=== PATIENT | female | born 1960 | race Caucasian/White ===

== ENCOUNTER 2020-04-22 04:51 | Day surgery (SDC) | payer BC ==
[2020-04-20 16:12] VITALS: BMI 28.5
[2020-04-22] MEDS ORDERED: ceFAZolin SODIUM 1 GM VIAL ONE (09:02)
[2020-04-22] MEDS ORDERED: PROPOFOL 20 ML ONE ×2 (09:02)
[2020-04-22] MEDS ORDERED: DEXAMETHASONE SOD PHOSPHATE 4 MG/1 ML VIAL ONE (09:02)
[2020-04-22] MEDS ORDERED: SUCCINYLCHOLINE CHLORIDE 200 MG/10 ML SYRINGE ONE (09:02)
[2020-04-22] MEDS ORDERED: LIDOCAINE HCL/PF 2% SDV 5ML VIAL ONE (09:02)
[2020-04-22] MEDS ORDERED: MIDAZOLAM HCL 2 MG/2 ML SINGLE DOSE VIAL ONE ×2 (09:02→11:09)
[2020-04-22] MEDS ORDERED: SCOPOLAMINE HYDROBROMIDE 1 PATCH PATCH.TD72 ONE (09:54)
[2020-04-22] MEDS ORDERED: LIDOCAINE HCL 1% EPINEPHRINE 1:200,000 30 ML VIAL (PF) ONE (10:19)
[2020-04-22] MEDS ORDERED: oxyCODONE HCL 5 MG TABLET PO PRN ×2 (10:25)
[2020-04-22] MEDS ORDERED: ONDANSETRON 4 MG/2 ML VIAL IVPUSH PRN (10:25)
[2020-04-22] MEDS ORDERED: LACTATED RINGERS SOLUTION 1,000 ML IV SCH (10:30)
[2020-04-22] MEDS ORDERED: ceFAZolin 2 GRAM PREMIX BAG IVPB ONE (10:45)
[2020-04-22] MEDS ORDERED: BUPIVACAINE HCL/PF 0.5% (5 MG/ML) 30 ML VIAL IJ ONE (11:04)
[2020-04-22] MEDS ORDERED: THROMBIN (BOVINE) 5,000 UNIT VIAL TP ONE (11:04)
[2020-04-22] MEDS ORDERED: LIDOCAINE 1%/EPI 1:100000 (20 ML MULTI DOSE VIAL) IJ ONE (11:04)
[2020-04-22] MEDS ORDERED: ACETAMINOPHEN 1000 MG/100 ML VIAL (NON FORMULARY) IVPB ONE (12:35)
[2020-04-22] MEDS ORDERED: ONDANSETRON 4 MG/2 ML VIAL ONE (12:57)
--- NOTE | 2020-04-22 13:04 | OP ---
Operative Note - Note: Operative Date: 04/22/20 Pre-Operative Diagnosis: Thyroid cancer Operation: Total thyroidectomy Post-Operative Diagnosis: Same as Pre-op Surgeon: Bhupendra Stark Semiconductor Assembler: Bryant Nuñez Anesthesiologist/SOUND EFFECTS TECHNICIAN: Magalie Ontiveros Anesthesia: General Estimated Blood Loss (mls): 5 Operative Report Dictated: Yes
--- NOTE | 2020-04-22 14:17 | SURG ---
[employer]gery [employer] Project Engineer Note International Project Engineer: Bryant Nuñez PA-C Date of Service: 04/22/20 Diagnosis: Thyroid cancer Procedure: Total thyroidectomy I was present for the entirety of the operative procedure. For further detail, please refer to operative report.
[2020-04-22] MEDS ORDERED: ACETAMINOPHEN 650 MG/20.3 ML ORAL SOLUTION (CUPS) ONE (15:34)
[2020-04-22] MEDS ORDERED: ACETAMINOPHEN 650 MG/20.3 ML ORAL SOLUTION (CUPS) PO ONE (15:42)
[2020-04-22 16:57] VITALS: BP 108/66; PULSE 68; TEMP 98.6
--- NOTE | 2020-04-24 13:01 | OP ---
DATE OF OPERATION: 04/22/2020 SURGICAL ATTENDING: Galen Lofton MD IT SOFTWARE ENGINEER: STIVEN Ma PREOPERATIVE DIAGNOSIS: Thyroid cancer. POSTOPERATIVE DIAGNOSIS: Thyroid cancer. ANESTHESIA: General endotracheal. PROCEDURE: 1. Completion thyroidectomy. 2. Parathyroid reimplantation. 3. Neck ultrasound. 4. Revision of cervical scar. DESCRIPTION OF PROCEDURE: Patient was taken into the operating room, placed in a supine position, endotracheally intubated. Neck ultrasound was performed showing a normal right thyroid lobe with no other findings in the neck. The neck was then prepped and draped in the usual sterile fashion. The previously made cervical scar was excised and sent to Pathology. The incision was then carried down through subcutaneous tissues and platysma. Subplatysmal flaps were raised superiorly and inferiorly and flap hooks were placed for exposure. The median raphe was incised and the right-sided strap muscles were elevated off the thyroid gland. The recurrent laryngeal nerve was identified, dissected and preserved. The superior, posterior and inferior attachments of the right thyroid lobe were transected. The right thyroid lobe was then lifted off of the trachea and removed. It was checked for parathyroid tissue and a small piece of parathyroid tissue was identified. A biopsy was taken and on frozen section favored parathyroid tissue. The right superior parathyroid gland was saved intact with a good blood supply and color. The right inferior parathyroid gland was saved intact. However, its color was poor. Therefore, it was removed, biopsied, then proven to be parathyroid tissue and saved for reimplantation. Both parathyroid pieces were then placed into 2 separate pockets in the right sternocleidomastoid muscle marked by Prolene suture. Hemostasis was achieved. Valsalva was performed with no bleeding seen. The wound was then closed in 3 layers. Dermabond was placed. The patient was then awakened, extubated and taken to recovery in stable condition. Dr. Lofton, the attending surgeon, was present throughout the entire procedure. GALEN LOFTON M.D. [id number]
--- NOTE | 2020-04-28 16:25 | PATH ---
Surgical Pathology Report Patient Name: LAUREN CANSECO [facility]. Rec. #: [id number] /Age/Gender: 1960 (Age: 60) / F Account: [id number] Location: [facility] Taken: 04/22/2020 Received: 04/22/2020 Reported: 04/28/2020 Physicians: Bhupendra Stark M.D. Specimen(s) Received A: PARATHYROID, RIGHT, BIOPSY(FS) B: PARATHYROID #2, RIGHT, BIOPSY(FS) C: CERVICAL SCAR D: THYROID LOBE Clinical History Thyroid cancer Intraoperative Consult Diagnosis A. Right parathyroid, frozen section: Minute fragment of markedly crushed tissue; favor parathyroid tissue. B. Right parathyroid biopsy #2, frozen section: Parathyroid tissue. Deidre Ellis M.D., 04/22/2020 Final Diagnosis A. PARATHYROID, RIGHT, BIOPSY (FS): MINUTE FRAGMENT OF MARKEDLY CRUSHED LYMPHOID TISSUE. SEE COMMENT. B. PARATHYROID #2, RIGHT, BIOPSY (FS): SMALL FRAGMENT OF PARATHYROID TISSUE. C. CERVICAL SCAR, EXCISION: SKIN AND UNDERLYING SUBCUTANEOUS TISSUE WITH DERMAL SCAR. D. THYROID LOBE, LOBECTOMY: BENIGN THYROID WITH DIFFUSE HETEROGENOUS LYMPHOID INFILTRATE AND PROMINENT GERMINAL CENTERS CONSISTENT WITH CHRONIC LYMPHOCYTIC THYROIDITIS. ONE PARATHYROID GLAND. ONE LYMPH NODE NEGATIVE FOR CARCINOMA (0/1). SEE COMMENT. Comment: Part A, Immunohistochemical stains performed and interpreted at [facility] show scant crushed lymphoid tissue is positive for CD45. AE1/3, TTF-1, and chromogranin are negative. Although parathyroid tissue was favored on frozen section, no parathyroid tissue was identified on permanent sections. Submitted tissue was minute, show marked cautery and frozen artifact, and precludes definitive evaluation on frozen section analysis. History of thyroid cancer and Adelita's disease noted. Suggest clinical and radiological. Positive and negative controls (internal if applicable) show appropriate results. Electronically Signed Aggie Richard M.D. Gross Description A. Received fresh labeled "right parathyroid biopsy," is a less than 0.1 cm in greatest dimension syed soft tissue fragment. The specimen is submitted in toto for frozen section. The frozen section residue is entirely submitted in one cassette. B. Received fresh labeled "right parathyroid #2 biopsy," is a 0.1 cm in greatest dimension syed-red soft tissue fragment. The specimen is submitted in toto for frozen section. The frozen section residue is entirely submitted in one cassette. C. Received in formalin labeled "cervical scar," is a 5.4 x 0.5 cm syed, elliptical, unoriented portion of skin excised to depth of 0.7 cm. The epidermal surface displays a central, linear, well-healed scar. Die Cast Technician sections are submitted in one cassette. D. Received in formalin labeled "right thyroid lobe," are 3 syed brown, irregular, unoriented portions of soft tissue ranging from 0.8 x 0.6 x 0.6 cm to 3.0 x 2.2 x 1.0 cm. The specimen is 5 g in aggregate. The largest portion of tissue is consistent with a portion of thyroid lobe. The outer surface is syed avila and focally cauterized. The specimens are inked blue and serially sectioned. Sectioning of the largest portion displays syed-brown thyroid parenchyma. No definitive lesions are identified. The specimen is entirely submitted in 6 cassettes as follows: 1-smallest portion of tissue; 2-medium portion of tissue; 3-5-[id number] submitted largest portion of tissue. 04/22/2020 saudi04/22/2020
== END 2020-04-22 16:15 | disposition home or self-care (01) ==
LOC: JASU-SURG 04:51
PROVIDERS: ATTEND Surgery
PROC: 0GSR0ZZ Reposition Parathyroid Gland, Open Approach (ICD-10-PCS; 2020-04-22)
PROC: 0GTK0ZZ Resection of Thyroid Gland, Open Approach (ICD-10-PCS; principal; 2020-04-22 10:00)
DX: C73 Malignant neoplasm of thyroid gland (principal); L90.5 Scar conditions and fibrosis of skin
CPT/HCPCS: 88304-TC; 88307-TC; 88331-TC; 88341-TC; 88342-TC; 94760; J0131